=== PATIENT | female | born 1970 | race Caucasian/White ===

== ENCOUNTER 2023-06-29 08:08 | Inpatient (IN) | payer OTHER ==
[~2023-06-29] VITALS: Ht 152.4 cm; Wt 73.9 kg
[2023-06-29 08:11] VITALS: O2SAT 96
[2023-06-29] MEDS: MORPHINE SULFATE 4 MG/ML INJ (FOR IV/IM USE) IV ONE (08:58)
[2023-06-29] MEDS: KETOROLAC 60MG/2ML VIAL IM ONE (09:05)
[2023-06-29] MEDS: TETANUS, DIPHTHERIA, PERTUSSIS VAC/PF 0.5ML (>10YR OLD) IM ONE (09:05)
[2023-06-29] MEDS: MORPHINE SULFATE 2 MG/ML CPJ (NOT FOR IM USE) IV ONE (09:25)
[2023-06-29] MEDS: KETOROLAC 15MG/ML VIAL IV ONE (09:25)
[2023-06-29] MEDS: FENTANYL CITRATE/PF 50MCG/ML 2ML VIAL IV ONE (11:22)
[2023-06-29] MEDS: CEFAZOLIN 1000MG PREMIX 50 ML IV ONE ×2 (11:23→11:24)
[2023-06-29] MEDS ORDERED: GUAIFENESIN 200MG/10ML SUGAR FREE UDC PO PRN (12:45)
[2023-06-29] MEDS ORDERED: CLONIDINE 0.1MG TABLET PO PRN (12:45)
[2023-06-29] MEDS ORDERED: DOCUSATE SODIUM 100MG CAPSULE PO PRN (12:45)
[2023-06-29] MEDS ORDERED: IPRATROPIUM/ALBUTEROL 0.5-3(2.5)MG/3ML NEB HHN PRN (12:45)
[2023-06-29] MEDS ORDERED: ONDANSETRON HCL 4MG/2ML INJ IV PRN (12:45)
[2023-06-29] MEDS ORDERED: MAGNESIUM/ALUMINUM HYDROXIDE/SIMETHICONE 30ML UDC PO PRN (12:45)
[2023-06-29] MEDS ORDERED: ACETAMINOPHEN 325MG TABLET PO PRN (12:45)
[2023-06-29] MEDS ORDERED: NALOXONE HCL 0.4MG/ML VIAL IV PRN (13:15)
[2023-06-29] MEDS: HYDROMORPHONE HCL/PF 2MG/ML CPJ IV PRN (13:57)
[2023-06-29 16:13] LABS: BASOPHILS % 0.5 % (0.0-2.0); EOSINOPHILS % 1.5 % (0.0-5.0); HEMATOCRIT. 41.5 % (36.0-48.0); HEMOGLOBIN. 14.1 g/dL (12.0-16.0); LYMPHOCYTES % 28.5 % (20.0-50.0); MEAN CORPUSCULAR HEMOGLOBIN 30.4 pg (28.0-32.0); MEAN CORPUSCULAR VOLUME 89.6 fL (81.0-99.0); MEAN PLATELET VOLUME 8.5 fl (7.4-10.4); MONOCYTES % 5.3 % (2.0-8.0); NEUTROPHILS % 64.2 % (40.0-76.0); PLATELET 241 x1000/uL (130-400); RED BLOOD CELL COUNT 4.63 mill/uL (4.2-5.4); RED CELL DISTRIBUTION WIDTH 12.7 % (11.6-14.6); WHITE BLOOD COUNT 11.1 x1000/uL (4.5-11.0)
[2023-06-29 16:27] LABS: ALANINE AMINOTRANSFERASE 37 IU/L (10-49); ALBUMIN 4.7 g/dL (3.2-4.8); ASPARTATE AMINOTRANSFERASE 24 IU/L (<34); BILIRUBIN TOTAL 0.6 mg/dL (0.1-1.0); CALCIUM 9.1 mg/dL (8.7-10.4); CARBON DIOXIDE 23 mEq/L (21-32); CHLORIDE 106 mEq/L (98-107); CREATINE KINASE 117 IU/L (34-145); CREATINE KINASE MB FRACTION 1.7 ng/mL (0.5-3.6); CREATININE 0.7 mg/dL (0.6-1.0); GLUCOSE 91 mg/dL (70-105); POTASSIUM 3.7 mEq/L (3.5-5.1); PROTEIN TOTAL 8.5 g/dL (6.0-8.3); SODIUM 138 mEq/L (136-145); UREA NITROGEN BLOOD 12 mg/dL (9-23)
[2023-06-29 16:40] LABS: TROPONIN I HIGH SENSITIVITY < 4 ng/L (3.0-34)
[2023-06-29 19:30] VITALS: BP 155/93; PULSE 91; RESP 18; TEMP 98.6
[2023-06-29 20:00] VITALS: BP 168/103; PULSE 91; RESP 18; TEMP 98.4
[2023-06-29] MEDS: ENOXAPARIN 40MG/0.4ML SYR SUBCUT SCH (20:00)
[2023-06-29] MEDS: ACETAMINOPHEN 325MG TABLET PO PRN (22:00)
[2023-06-29 23:47] LABS: CLARITY URINE CLEAR (CLEAR); COLOR URINE YELLOW (YELLOW); GLUCOSE URINE NEGATIVE (NEGATIVE); KETONES URINE NEGATIVE (NEGATIVE); LEUKOCYTE ESTERASE URINE NEGATIVE (NEGATIVE); NITRITE URINE NEGATIVE (NEGATIVE); OCCULT BLOOD URINE NEGATIVE (NEGATIVE); PH URINE 5.5 (4.5-8.0); PROTEIN URINE TRACE (NEGATIVE); SPECIFIC GRAVITY URINE 1.033 (1.005-1.030); UROBILINOGEN URINE 0.2 E.U./dL (0.2-1.0)
[2023-06-29 23:56] LABS: *AMPHETAMINES SCREEN URINE NEGATIVE (NEGATIVE); *BARBITURATES SCREEN URINE NEGATIVE (NEGATIVE); *BENZODIAZEPINES SCREEN URINE NEGATIVE (NEGATIVE); *COCAINE SCREEN URINE NEGATIVE (NEGATIVE); CANNABINOID URINE SCREEN NEGATIVE (NEGATIVE); ECSTASY MDMA SCREEN URINE NEGATIVE (NEGATIVE); METHADONE URINE SCREEN Neg (NEGATIVE); OPIATES URINE SCREEN PRESUMPTIVE POSITIVE (NEGATIVE); PHENCYCLIDINE URINE SCREEN NEGATIVE (NEGATIVE)
[2023-06-30] VITALS: BP 128/73; PULSE 90; RESP 20; TEMP 99.5
[2023-06-30 00:10] LABS: CREATINE KINASE 137 IU/L (34-145); CREATINE KINASE MB FRACTION 2.1 ng/mL (0.5-3.6)
[2023-06-30 00:31] LABS: TROPONIN I HIGH SENSITIVITY < 4 ng/L (3.0-34)
[2023-06-30] MEDS: SODIUM CHLORIDE 0.9% 1,000 ML IV SCH (01:00)
[2023-06-30 01:36] LABS: SQUAMOUS EPITHELIAL CELL URINE 1+ /lpf (RARE/1+)
[2023-06-30 01:38] LABS: BACTERIA URINE NONE SEEN; RBC URINE 0-2 /hpf (0-2)
[2023-06-30 04:00] VITALS: BP 118/62; PULSE 88; RESP 20; TEMP 98.2
[2023-06-30 08:00] VITALS: BP 125/51; PULSE 75; RESP 17; TEMP 96.9
[2023-06-30 08:49] LABS: BASOPHILS % 0.5 % (0.0-2.0); EOSINOPHILS % 2.4 % (0.0-5.0); HEMATOCRIT. 38.2 % (36.0-48.0); HEMOGLOBIN. 12.9 g/dL (12.0-16.0); LYMPHOCYTES % 25.7 % (20.0-50.0); MEAN CORPUSCULAR HEMOGLOBIN 30.2 pg (28.0-32.0); MEAN CORPUSCULAR HGB CONC 33.9 g/dL (31.0-37.0); MEAN CORPUSCULAR VOLUME 89.1 fL (81.0-99.0); MEAN PLATELET VOLUME 8.8 fl (7.4-10.4); NEUTROPHILS % 64.4 % (40.0-76.0); PLATELET 219 x1000/uL (130-400); RED BLOOD CELL COUNT 4.29 mill/uL (4.2-5.4); RED CELL DISTRIBUTION WIDTH 12.9 % (11.6-14.6); WHITE BLOOD COUNT 8.4 x1000/uL (4.5-11.0)
[2023-06-30] MEDS: PANTOPRAZOLE SODIUM 40 MG/VIAL IV SCH (09:18)
[2023-06-30] MEDS: HYDROMORPHONE HCL/PF 2MG/ML CPJ IV PRN (11:50)
[2023-06-30 12:00] VITALS: BP 112/76; PULSE 72; RESP 18; TEMP 97.5
[2023-06-30 12:58] LABS: ALANINE AMINOTRANSFERASE 34 IU/L (10-49); ALBUMIN 4.4 g/dL (3.2-4.8); ASPARTATE AMINOTRANSFERASE 37 IU/L (<34); BILIRUBIN TOTAL 0.7 mg/dL (0.1-1.0); CALCIUM 8.9 mg/dL (8.7-10.4); CARBON DIOXIDE 17 mEq/L (21-32); CHLORIDE 108 mEq/L (98-107); CHOLESTEROL 171 mg/dL (<200); CREATININE 0.7 mg/dL (0.6-1.0); GLUCOSE 112 mg/dL (70-105); HDL CHOLESTEROL 44 mg/dL (>65); LDL CHOLESTEROL 127 mg/dL (5-100); POTASSIUM 4.1 mEq/L (3.5-5.1); PROTEIN TOTAL 7.9 g/dL (6.0-8.3); SODIUM 138 mEq/L (136-145); T4 FREE 1.39 ng/dL (0.89-1.76); THYROID STIMULATING HORMONE 2.57 uIU/mL (0.55-4.78); TRIGLYCERIDE 132 mg/dL (0-150); UREA NITROGEN BLOOD 10 mg/dL (9-23)
[2023-06-30 14:12] VITALS: BP 112/76; PULSE 72; TEMP 96.1
== END 2023-06-30 15:35 | disposition short-term general hospital (02) | DRG 563 ==
LOC: ER 08:29 → EDBEDREQ 11:50 → 4WST 18:08
PROVIDERS: ADMIT Preventive Medicine Clinical Informatics; ATTEND Preventive Medicine Clinical Informatics
DX: S52.502A Unspecified fracture of the lower end of left radius, initial encounter for closed fracture (principal); S52.202A Unspecified fracture of shaft of left ulna, initial encounter for closed fracture; S62.618A Displaced fracture of proximal phalanx of other finger, initial encounter for closed fracture; V43.52XA Car driver injured in collision with other type car in traffic accident, initial encounter; Z68.31 Body mass index [BMI] 31.0-31.9, adult; J45.909 Unspecified asthma, uncomplicated; E66.01 Morbid (severe) obesity due to excess calories; D72.829 Elevated white blood cell count, unspecified; K59.00 Constipation, unspecified; Y92.410 Unspecified street and highway as the place of occurrence of the external cause
CPT/HCPCS: 36415; 71045; 73030; 73090; 73130; 80053; 80061; 80305; 81003; 82550; 82553; 84439; 84443; 84484; 85025; 93005; 93970; 99285; C9113; J0690; J1170; J1650; J1885; J2270; J3010